=== PATIENT | female | born 1995 | race Caucasian/White ===

== ENCOUNTER 2021-09-08 17:26 | Inpatient (IN) ==
[2021-09-08] MEDS ORDERED: 0.9 % SODIUM CHLORIDE 1,000 ML IV ONE (18:49)
[2021-09-08] MEDS ORDERED: KETOROLAC 30 MG/ML VIAL IV ONE (18:53)
[2021-09-08] MEDS ORDERED: morphine 2 MG/ML VIAL IV ONE (18:53)
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
[2021-09-08 19:46] LABS: Appearance,Urine CLOUDY (Clear); Bacteria,Urine MANY /hpf (0); Bilirubin,Urine Negative (Negative); Color,Urine YELLOW; Culture Indicated,Urine No; Glucose,Urine (UA) Negative (Negative); Ketones,Urine Negative (Negative); Leukocyte Esterase,Urine 500 /uL (Negative); Mucus,Urine MOD /hpf; Nitrate,Urine Negative (Negative); Protein,Urine Negative (Negative); Specific Gravity,Urine 1.011 (1.000-1.035); Urine RBC 7 /hpf (0-3); Urine Squamous Epithelial Cell 21 /hpf (0-4); Urine WBC > 182 /hpf (0-4); Urobilinogen,Urine Negative
[2021-09-08 19:52] LABS: POC Blood Urea Nitrogen 8 mg/dL (6-20); POC CO2 22 mmol/L (22-30); POC Calcium, Ionized 1.24 mmEq/L (1.16-1.32); POC Chloride 104 mEq/L (96-108); POC Creatinine 0.5 mg/dL (0.6-1.2); POC Glucose, Random 110 mg/dL (70-105); POC Hematocrit 34 % (36-48); POC Potassium 3.9 mEql/L (3.3-5.1); POC Sodium 138 mEq/L (133-145)
[2021-09-08] MEDS ORDERED: cefTRIAXone 1 GM VIAL IV ONE (20:03)
[2021-09-08 20:20] LABS: Hemoglobin 11.8 g/dL (11.2-15.7); Mean Cell Volume 85.8 fL (80.0-100.0); Mean Corpuscular HGB Conc 33.7 g/dL (31.0-36.0); Mean Platelet Volume 9.1 fL (7.4-10.4); Platelet Count 381 K/mcL (140-440); RBC 4.08 M/mcL (3.59-5.38); Red Cell Distribution Width 12.6 % (11.5-14.5); WBC 13.2 K/mcL (4.5-11.0)
[2021-09-08 21:27] LABS: Eosinophils % (Manual) 1 % (0-7); Lymphocytes % 30 % (15-49); Monocytes % (Manual) 2 % (1-12); Platelet Estimate NORMAL (Normal); RBC Morphology NORMAL (Normal); Segmented Neutrophils % 67 % (38-78)
[2021-09-08] MEDS ORDERED: DOXYCYCLINE HYCLATE 100 MG TABLET.ORL PO ONE (22:19)
[2021-09-08] MEDS ORDERED: metroNIDAZOLE 500 MG TABLET PO ONE (22:19)
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
[2021-09-08] MEDS ORDERED: cefTRIAXone 1 GM in DEXTROSE 5% IN WATER 50 ML IV SCH (23:45)
[2021-09-08] MEDS ORDERED: KETOROLAC 10 MG TABLET PO PRN (23:59)
[2021-09-08] MEDS ORDERED: morphine 4 MG/ML VIAL IV PRN (23:59)
--- NOTE | 2021-09-09 00:12 | Emergency Department Note ---
HPI General Chief complaint: Abdominal Pain Stated complaint: nausea/vomiting, left lower abd pain Time Seen by Provider: 09/08/21 18:16 Source: patient Mode of arrival: ambulatory Limitations: no limitations History of Present Illness HPI Narrative: Narrative: Related Data Previous Rx's Medication Instructions Recorded metoclopramide HCl 5 mg tablet 5 mg PO QACHS #20 tab 09/06/20 baclofen 10 mg tablet 10 mg PO QID #120 tab 10/29/20 duloxetine 30 mg capsule,delayed 30 mg PO QDAY #30 cap 10/29/20 release duloxetine 60 mg capsule,delayed 60 mg PO QAM #30 cap 10/29/20 release lithium carbonate 450 mg See Rx Instructions .ROUTE 10/29/20 tablet,extended release .COMPLEX #90 tab mirtazapine 15 mg tablet See Rx Instructions .ROUTE 10/29/20 .COMPLEX #30 tab naltrexone 50 mg tablet See Rx Instructions .ROUTE 10/29/20 .COMPLEX #30 unknown measurement unit code: tablet quetiapine 100 mg tablet See Rx Instructions .ROUTE 10/29/20 .COMPLEX #45 unknown measurement unit code: tablet quetiapine 25 mg tablet 25 mg PO QDAY #30 tab 10/29/20 Allergies Allergy/AdvReac Type Severity Reaction Status Date / Time shellfish derived Allergy Severe THROAT Verified 09/08/21 17:27 SWELLING Sulfa (Sulfonamide Allergy Intermediate Unknown Verified 09/08/21 17:27 Antibiotics) Review of Systems ROS ROS Narrative: Narrative: [facility] Narrative Patient History Narrative: Narrative: Medical/Surgical/Family History All Active Problems (Updated 09/09/21 @ 00:12 by Jd Shelton DO) Tubo-ovarian abscess (Acute) Leukocytosis (Acute) Tubo-ovarian abscess (Acute) Acalculous cholecystitis (Acute) On middle or intermediate school principal drug therapy (Acute) Bipolar 1 disorder (Acute) Stimulant use disorder (Acute) Alcohol use disorder, mild, in sustained remission, abuse (Acute) Opioid use disorder, moderate, dependence (Acute) Cannabis use disorder, moderate, dependence (Acute) Acid reflux (Chronic) Numbness (Chronic) Chlamydia (Chronic) Migraine (Chronic) Joint pain (Chronic) ADHD (Chronic ~2004) Insomnia (Chronic) Bipolar 1 disorder (Acute ~2004) Depression (Chronic ~2004) ADD (attention deficit disorder) (Chronic) Heroin use (Chronic) Substance abuse (Chronic) Anxiety (Chronic ~2005) Bipolar disorder (Chronic) Abscess of skin or subcutaneous tissue (Chronic) Laceration (Chronic) Encounter for removal of sutures (Chronic) Medical History (Updated 09/09/21 @ 00:12 by Jd Shelton DO) Abscess of skin or subcutaneous tissue Acid reflux ADD (attention deficit disorder) ADHD (~2005) Anxiety (~2005) Bipolar 1 disorder (~2005) Bipolar disorder Chlamydia Depression (~2004) Heroin use Insomnia Joint pain Migraine Numbness Substance abuse Surgical History No pertinent past surgical history Family History Grandmother Stroke Paternal Seizure Paternal Cancer Maternal Diabetes Paternal Family/Other Seizure Aunt Migraine Aunt Mother Lung cancer Arthritis Father Anxiety Alcoholism Social History Smoking Status: Former smoker Alcohol Intake Frequency: does not drink Substance Use: former substance user, marijuana and heroin Exam Narrative Narrative: Narrative: General Limitations: no limitations Course Vital Signs Vital signs: Vital Signs Blood Pressure 118/75 09/08/21 18:25 Pulse Rate 89 09/08/21 22:33 Blood Pressure 119/73 09/08/21 22:31 Pulse Oximetry (%) 100 09/08/21 22:33 MDM MDM Narrative Medical decision making narrative: Narrative: Patient was seen in conjunction with the ORI, please see their chart for further details. Patient was signed out to me after the ORI's shift ended, with the remaining test being on ultrasound of the pelvis. In brief, the patient presented with worsening symptoms of lower abdominal/left lower quadrant abdominal pain, STIs symptoms of vaginal discharge, and body aches/chills. Vital signs here were stable, though she does have an elevated blood count and a tender abdomen. Ultrasound revealed a tubo-ovarian abscess, so MATTRESS SPECIALIST was consulted. Dr. Davis came to see the patient at bedside, examine her, and recommended admission to the hospital for IV antibiotics and possible interventional radiology drainage. She discussed the case directly with the hospitalist, who agreed with the plan of admission. I discussed case the hospitalist as well, who agrees to the plan of admission. Patient is comfortable and understands the process of what is happening. She has no further concerns or questions at this time. Lab Data Result diagrams: 09/08/21 19:45 Labs: Lab Results 09/08/21 09/08/21 09/08/21 Range/Units 17:42 19:44 19:45 WBC 13.2 H (4.5-11.0) K/mcL RBC 4.08 (3.59-5.38) M/mcL Hgb 11.8 (11.2-15.7) g/dL Hct 35.0 (34.1-44.9) % POC Hct 34 L (36-48) % MCV 85.8 (80.0-100.0) fL MCH 28.9 (26.0-34.0) pg MCHC 33.7 (31.0-36.0) g/dL RDW 12.6 (11.5-14.5) % Plt Count 381 (140-440) K/mcL MPV 9.1 (7.4-10.4) fL Seg Neutrophils % 67 (38-78) % Lymphocytes % 30 (15-49) % Monocytes % (Manual) 2 (1-12) % Eosinophils % (Manual) 1 (0-7) % Platelet Estimate Normal (Normal) RBC Morphology Normal (Normal) POC Sodium 138 (133-145) mEq/L POC Potassium 3.9 (3.3-5.1) mEql/L POC Chloride 104 (96-108) mEq/L POC Total CO2 22 (22-30) mmol/L POC BUN 8 (6-20) mg/dL POC Creatinine 0.5 L (0.6-1.2) mg/dL POC Glucose 110 H (70-105) mg/dL POC WB Ioniz Calcium 1.24 (1.16-1.32) mmEq/L Urine Color Yellow Urine Appearance Cloudy A (Clear) Urine pH 7.0 (5.0-9.0) Ur Specific [place] 1.011 (1.000-1.035) Urine Protein Negative (Negative) mg/dL Urine Glucose (UA) Negative (Negative) mg/dL Urine Ketones Negative (Negative) mg/dL Urine Occult Blood 0.20 (Negative) mg/dL Urine Nitrate Negative (Negative) Urine Bilirubin Negative (Negative) mg/dL Urine Urobilinogen Negative mg/dL Ur Leukocyte Esterase 500 A (Negative) /uL Urine RBC 7 H (0-3) /hpf Urine WBC > 182 H (0-4) /hpf Ur Squamous Epith Cells 21 H (0-4) /hpf Urine Bacteria Many A (0) /hpf Urine Mucus Mod A (None) /hpf Ur Culture Indicated? No HIV 1&2 Ag/Ab, 4th Gen (Non-Reactive) 09/08/21 Range/Units 19:45 WBC (4.5-11.0) K/mcL RBC (3.59-5.38) M/mcL Hgb (11.2-15.7) g/dL Hct (34.1-44.9) % POC Hct (36-48) % MCV (80.0-100.0) fL MCH (26.0-34.0) pg MCHC (31.0-36.0) g/dL RDW (11.5-14.5) % Plt Count (140-440) K/mcL MPV (7.4-10.4) fL Seg Neutrophils % (38-78) % Lymphocytes % (15-49) % Monocytes % (Manual) (1-12) % Eosinophils % (Manual) (0-7) % Platelet Estimate (Normal) RBC Morphology (Normal) POC Sodium (133-145) mEq/L POC Potassium (3.3-5.1) mEql/L POC Chloride (96-108) mEq/L POC Total CO2 (22-30) mmol/L POC BUN (6-20) mg/dL POC Creatinine (0.6-1.2) mg/dL POC Glucose (70-105) mg/dL POC WB Ioniz Calcium (1.16-1.32) mmEq/L Urine Color Urine Appearance (Clear) Urine pH (5.0-9.0) Ur Specific [place] (1.000-1.035) Urine Protein (Negative) mg/dL Urine Glucose (UA) (Negative) mg/dL Urine Ketones (Negative) mg/dL Urine Occult Blood (Negative) mg/dL Urine Nitrate (Negative) Urine Bilirubin (Negative) mg/dL Urine Urobilinogen mg/dL Ur Leukocyte Esterase (Negative) /uL Urine RBC (0-3) /hpf Urine WBC (0-4) /hpf Ur Squamous Epith Cells (0-4) /hpf Urine Bacteria (0) /hpf Urine Mucus (None) /hpf Ur Culture Indicated? HIV 1&2 Ag/Ab, 4th Gen Non-reactive (Non-Reactive) Discharge Plan Patient/Caregiver Discharge Instructions Pt seen by WIRED SWEATBAND CUTTER/PA only: No Clinical Impression: Tubo-ovarian abscess Patient Disposition: Xfer As Inpt ([facility]) Condition: Fair Follow up with: No,PCP [Primary Care Provider] - Prescriptions: No Action baclofen 10 mg tablet 10 mg PO QID Qty: 120 RF: 0 duloxetine 60 mg capsule,delayed release(DR/EC) 60 mg PO QAM Qty: 30 RF: 0 duloxetine 30 mg capsule,delayed release(DR/EC) 30 mg PO QDAY Qty: 30 RF: 0 lithium carbonate 450 mg tablet extended release See Rx Instructions .ROUTE .COMPLEX Qty: 90 RF: 0 mirtazapine 15 mg tablet See Rx Instructions .ROUTE .COMPLEX Qty: 30 RF: 0 naltrexone 50 mg tablet See Rx Instructions .ROUTE .COMPLEX Qty: 30 RF: 0 quetiapine [Seroquel] 25 mg tablet 25 mg PO QDAY Qty: 30 RF: 0 quetiapine 100 mg tablet See Rx Instructions .ROUTE .COMPLEX Qty: 45 RF: 0 metoclopramide HCl [Reglan] 5 mg tablet 5 mg PO QACHS Qty: 20 RF: 1
[2021-09-09] MEDS: ONDANSETRON 4 MG/2 ML VIAL IV PRN ×2 (02:20→06:49)
[2021-09-09] MEDS: cefOXitin 2 GM VIAL IV SCH ×2 (02:21→06:39)
[2021-09-09] MEDS ORDERED: 0.9 % SODIUM CHLORIDE 10 ML SYRINGE IV SCH ×2 (06:00→14:00)
--- NOTE | 2021-09-09 08:02 | Ultrasound Report ---
History: Left lower quadrant pelvic pain for four days, IUD for two years FINDINGS: The pelvis is imaged transabdominally and endovaginally. The uterus is anteverted and measures 4.6 x 6.0 x 8.0 cm. There is a linear IUD within the endometrial canal. This appears well-positioned. The myometrium is normal in thickness and slightly heterogeneous. There is no evidence of a uterine mass or fluid in the endometrial canal. Endometrium is 5 mm in thickness. The right ovary is enlarged and measures 3.3 x 5.0 x 5.3 cm. Within it there is a partially cystic and partially solid mass which measures 2.8 x 3.5 x 3.7 cm. Some of the solid components have a lobulated contour, are echogenic and hypervascular. There are also small follicles along the periphery of the ovary. Moderate amount free fluid is present in the left adnexa with relatively little free fluid around the right ovary. Left ovary is normal and measures 1.2 x 3.8 x 3.4 cm. It contains small follicles and has normal blood flow. IMPRESSION: Complex partially cystic and partially solid mass in the right ovary. With an IUD, an ectopic would be considered unlikely. This could be an infection such as a tubo-ovarian abscess. Neoplasm is also in the differential but less likely in a 26-year-old Well-positioned IUD Interpreted and Authenticated by: Antonio Culver 09/09/21
[2021-09-09] MEDS ORDERED: LITHIUM CARBONATE 450 MG TAB.SR.12H PO SCH (08:30)
[2021-09-09] MEDS ORDERED: cefOXitin 2 GM VIAL IV SCH ×2 (08:30→21:00)
[2021-09-09] MEDS ORDERED: ONDANSETRON 4 MG/2 ML VIAL IV PRN (08:41)
[2021-09-09] MEDS ORDERED: ACETAMINOPHEN 325 MG TABLET PO PRN (08:41)
[2021-09-09] MEDS ORDERED: 0.9 % SODIUM CHLORIDE 1,000 ML IV SCH (08:45)
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
[2021-09-09] MEDS ORDERED: QUEtiapine 25 MG TABLET PO SCH (09:00)
[2021-09-09] MEDS ORDERED: NALTREXONE HCL 50 MG TABLET PO SCH (09:00)
[2021-09-09] MEDS ORDERED: DULoxetine 30 MG CAPSULE PO SCH (09:00)
[2021-09-09] MEDS ORDERED: DOCUSATE SODIUM 100 MG CAPSULE PO SCH (09:00)
[2021-09-09] MEDS ORDERED: DOXYCYCLINE HYCLATE 100 MG TABLET.ORL PO SCH ×3 (09:00)
[2021-09-09] MEDS: BACLOFEN 10 MG TABLET PO SCH ×2 (09:51→12:59)
[2021-09-09] MEDS: oxyCODONE HCL 5 MG TABLET PO PRN ×2 (09:51→13:48)
--- NOTE | 2021-09-09 10:24 | Event Note ---
Event Note Event Note: Further Director Human Services Recommendations: Recommend percutaneous drainage if available. Continue IV antibiotics until clinically improved x24 hours. Once clinically improved recommend discharge home on doxycycline 100mg PO BID x 14 days and Flagyl 500mg PO BID x 14 days.
[2021-09-09 10:45] LABS: Basophils # (Auto) 0.06 K/mcL (0.00-0.30); Basophils % (Auto) 0.5 % (0.0-2.0); Eosinophils % (Auto) 1.8 % (0.0-7.0); Hematocrit 39.6 % (34.1-44.9); Hemoglobin 12.9 g/dL (11.2-15.7); Lymphocytes # (Auto) 2.29 K/mcL (1.50-4.80); Lymphocytes % (Auto) 20.7 % (15.5-49.0); Mean Corpuscular HGB Conc 32.6 g/dL (31.0-36.0); Mean Platelet Volume 9.2 fL (7.4-10.4); Monocytes # (Auto) 0.75 K/mcL (0.10-0.90); Monocytes % (Auto) 6.8 % (1.0-12.0); Neutrophils % (Auto) 70.2 % (38.0-78.0); Platelet Count 367 K/mcL (140-440); RBC 4.55 M/mcL (3.59-5.38); WBC 11.1 K/mcL (4.5-11.0)
[2021-09-09 11:13] LABS: ALT/SGPT 14 U/L (<40); AST/SGOT 14 U/L (<32); Albumin/Globulin Ratio 1.4 (1.0-2.3); Alkaline Phosphatase 94 U/L (39-117); Bilirubin,Total 0.7 mg/dL (0.1-1.0); Blood Urea Nitrogen 7 mg/dL (6-20); Calcium 9.6 mg/dL (8.6-10.4); Carbon Dioxide 22 mmol/L (22-30); Chloride 106 mmol/L (96-108); Globulin 2.8 gm/dL (2.2-3.7); Glomerular Filtration Rate 125; Glucose 82 mg/dL (70-105)
--- NOTE | 2021-09-09 15:50 | Discharge Summary ---
Discharge Provider Provider Patient information: Note initiated : 09/09/21 at 3:48 pm Service Date, if different from initiated Date: [] Patient: Gabriella Maurice 26 y/o F admitted on 09/09/21 for nausea/vomiting, left lower abd pain. Chief Complaint: [tubo-ovarian abscess] Date of admission: 09/09/21 01:36 Discharge date: 09/09/21 Primary care physician: PCP No Consults: 09/09/21 08:18 Consult to Physician [CONS] Routine Comment: Consulting Provider: Royal Kasper Reason For Exam: Physician to Consult Discharge Meds Discharge Medications Home Medications metoclopramide HCl 5 mg tablet 5 mg PO QACHS #20 tab 09/06/20 [Rx Confirmed 09/09/21 Last Taken Unknown] baclofen 10 mg tablet 10 mg PO QID #120 tab 10/29/20 [Rx Confirmed 09/09/21 Last Taken Unknown] duloxetine 30 mg capsule,delayed release 30 mg PO QDAY #30 cap 10/29/20 [Rx Confirmed 09/09/21 Last Taken Unknown] duloxetine 60 mg capsule,delayed release 60 mg PO QAM #30 cap 10/29/20 [Rx Confirmed 09/09/21 Last Taken Unknown] lithium carbonate 450 mg tablet,extended release See Rx Instructions .ROUTE .COMPLEX #90 tab 10/29/20 [Rx Confirmed 09/09/21 Last Taken Unknown] mirtazapine 15 mg tablet See Rx Instructions .ROUTE .COMPLEX #30 tab 10/29/20 [Rx Confirmed 09/09/21 Last Taken Unknown] naltrexone 50 mg tablet See Rx Instructions .ROUTE .COMPLEX #30 unknown measurement unit code: tablet 10/29/20 [Rx Confirmed 09/09/21 Last Taken Unknown] quetiapine 100 mg tablet See Rx Instructions .ROUTE .COMPLEX #45 unknown measurement unit code: tablet 10/29/20 [Rx Confirmed 09/09/21 Last Taken Unknown] quetiapine 25 mg tablet 25 mg PO QDAY #30 tab 10/29/20 [Rx Confirmed 09/09/21 Last Taken Unknown] COURSE Hospital Course Hospital course: Antibiotics started on 09/08. Radiologist-assisted abscess drainage not available. Patient left AMA on 09/09. Discharge diagnosis: tuboovarian abscess Time Spent with Patient Time attestation: Total time spent providing and/or coordinating discharge services: Antibiotics started on 09/08. Radiologist-assisted abscess drainage not available. Patient left AMA on 09/09. EXAM Constitutional Vitals: Temp Pulse Resp BP Pulse Ox 36.7 C 72 16 109/64 97 09/09/21 15:43 09/09/21 15:43 09/09/21 15:43 09/09/21 15:43 09/09/21 15:43 General appearance: cooperative and no acute distress Head Head exam: Present atraumatic and normocephalic Eye Eye exam: Present EOMI and PERRL ENT ENT exam: Present mucous membranes moist, normal exam and normal external ear exam Neck Neck exam: Present normal inspection; Absent lymphadenopathy, tenderness and thyromegaly Respiratory Respiratory exam: Absent accessory muscle use, respiratory distress and wheezes Cardiovascular Cardiovascular exam: Present normal rate and rhythm; Absent JVD GI/Abdominal GI/Abdominal exam: Present normal bowel sounds and soft; Absent organomegaly and tenderness Extremities Exam Extremities exam: Present full ROM, normal capillary refill and normal inspection; Absent tenderness Neurological Exam Neurological exam: Present alert, CN II-XII intact and oriented X3; Absent motor sensory deficit Psychiatric Psychiatric exam: Present normal affect and normal mood; Absent anxious and depressed Skin Skin exam: Present dry and intact Discharge Data Data Completed and Pending Labs on day of discharge: Labs from last 24 hours 09/09/21 09/09/21 09/09/21 09:45 09:45 09:45 WBC 11.1 H RBC 4.55 Hgb 12.9 Hct 39.6 POC Hct MCV 87.0 MCH 28.4 MCHC 32.6 RDW 13.0 Plt Count 367 MPV 9.2 Neut % (Auto) 70.2 Lymph % (Auto) 20.7 [place] % (Auto) 6.8 Eos % (Auto) 1.8 Baso % (Auto) 0.5 Lymph # (Auto) 2.29 [place] # (Auto) 0.75 Eos # (Auto) 0.20 Baso # (Auto) 0.06 Seg Neutrophils % Lymphocytes % Monocytes % (Manual) Eosinophils % (Manual) Absolute Neutrophils 7.76 Platelet Estimate RBC Morphology POC Sodium Sodium 137 POC Potassium Potassium 3.9 POC Chloride Chloride 106 Carbon Dioxide 22 POC Total CO2 Anion Gap 9.0 POC BUN BUN 7 Creatinine 0.6 POC Creatinine GFR Calculation 125 Glucose 82 POC Glucose Calcium 9.6 POC WB Ioniz Calcium Total Bilirubin 0.7 AST 14 ALT 14 Alkaline Phosphatase 94 Total Protein 6.8 Albumin 4.0 Globulin 2.8 Albumin/Globulin Ratio 1.4 Procalcitonin 0.03 Urine Color Urine Appearance Urine pH Ur Specific [place] Urine Protein Urine Glucose (UA) Urine Ketones Urine Occult Blood Urine Nitrate Urine Bilirubin Urine Urobilinogen Ur Leukocyte Esterase Urine RBC Urine WBC Ur Squamous Epith Cells Urine Bacteria Urine Mucus Ur Culture Indicated? HIV 1&2 Ag/Ab, 4th Gen 09/08/21 09/08/21 09/08/21 19:45 19:45 19:44 WBC 13.2 H RBC 4.08 Hgb 11.8 Hct 35.0 POC Hct 34 L MCV 85.8 MCH 28.9 MCHC 33.7 RDW 12.6 Plt Count 381 MPV 9.1 Neut % (Auto) Lymph % (Auto) [place] % (Auto) Eos % (Auto) Baso % (Auto) Lymph # (Auto) [place] # (Auto) Eos # (Auto) Baso # (Auto) Seg Neutrophils % 67 Lymphocytes % 30 Monocytes % (Manual) 2 Eosinophils % (Manual) 1 Absolute Neutrophils Platelet Estimate Normal RBC Morphology Normal POC Sodium 138 Sodium POC Potassium 3.9 Potassium POC Chloride 104 Chloride Carbon Dioxide POC Total CO2 22 Anion Gap POC BUN 8 BUN Creatinine POC Creatinine 0.5 L GFR Calculation Glucose POC Glucose 110 H Calcium POC WB Ioniz Calcium 1.24 Total Bilirubin AST ALT Alkaline Phosphatase Total Protein Albumin Globulin Albumin/Globulin Ratio Procalcitonin Urine Color Urine Appearance Urine pH Ur Specific [place] Urine Protein Urine Glucose (UA) Urine Ketones Urine Occult Blood Urine Nitrate Urine Bilirubin Urine Urobilinogen Ur Leukocyte Esterase Urine RBC Urine WBC Ur Squamous Epith Cells Urine Bacteria Urine Mucus Ur Culture Indicated? HIV 1&2 Ag/Ab, 4th Gen Non-reactive 09/08/21 17:42 WBC RBC Hgb Hct POC Hct MCV MCH MCHC RDW Plt Count MPV Neut % (Auto) Lymph % (Auto) [place] % (Auto) Eos % (Auto) Baso % (Auto) Lymph # (Auto) [place] # (Auto) Eos # (Auto) Baso # (Auto) Seg Neutrophils % Lymphocytes % Monocytes % (Manual) Eosinophils % (Manual) Absolute Neutrophils Platelet Estimate RBC Morphology POC Sodium Sodium POC Potassium Potassium POC Chloride Chloride Carbon Dioxide POC Total CO2 Anion Gap POC BUN BUN Creatinine POC Creatinine GFR Calculation Glucose POC Glucose Calcium POC WB Ioniz Calcium Total Bilirubin AST ALT Alkaline Phosphatase Total Protein Albumin Globulin Albumin/Globulin Ratio Procalcitonin Urine Color Yellow Urine Appearance Cloudy A Urine pH 7.0 Ur Specific [place] 1.011 Urine Protein Negative Urine Glucose (UA) Negative Urine Ketones Negative Urine Occult Blood 0.20 Urine Nitrate Negative Urine Bilirubin Negative Urine Urobilinogen Negative Ur Leukocyte Esterase 500 A Urine RBC 7 H Urine WBC > 182 H Ur Squamous Epith Cells 21 H Urine Bacteria Many A Urine Mucus Mod A Ur Culture Indicated? No HIV 1&2 Ag/Ab, 4th Gen Discharge Plan Patient/Caregiver Discharge Instructions Prescriptions: No Action baclofen 10 mg tablet 10 mg PO QID Qty: 120 RF: 0 duloxetine 60 mg capsule,delayed release(DR/EC) 60 mg PO QAM Qty: 30 RF: 0 duloxetine 30 mg capsule,delayed release(DR/EC) 30 mg PO QDAY Qty: 30 RF: 0 lithium carbonate 450 mg tablet extended release See Rx Instructions .ROUTE .COMPLEX Qty: 90 RF: 0 mirtazapine 15 mg tablet See Rx Instructions .ROUTE .COMPLEX Qty: 30 RF: 0 naltrexone 50 mg tablet See Rx Instructions .ROUTE .COMPLEX Qty: 30 RF: 0 quetiapine [Seroquel] 25 mg tablet 25 mg PO QDAY Qty: 30 RF: 0 quetiapine 100 mg tablet See Rx Instructions .ROUTE .COMPLEX Qty: 45 RF: 0 metoclopramide HCl [Reglan] 5 mg tablet 5 mg PO QACHS Qty: 20 RF: 1 Follow Up Plan Follow up with: No,PCP [Primary Care Provider] - Patient Disposition: Left Against Medical Advice Prognosis: Fair Rehab Potential: Serious I certify that the patient requires SNF services: No Overall status at discharge: patient is not back to baseline Discharge Orders: Discharge Order (Routine); Ordered 09/09/21 Ordered By: Royal JARAMILLO VTE Deep Vein Thrombosis/Pulmonary Embolism Present on Admission: No
[2021-09-09] MEDS ORDERED: SENNOSIDES 1 TABLET PO SCH (21:00)
[2021-09-09] MEDS ORDERED: MIRTAZAPINE 15 MG TABLET PO SCH (21:00)
[2021-09-09] MEDS ORDERED: QUEtiapine 100 MG TABLET PO SCH (21:00)
== END 2021-09-09 15:40 | disposition left against medical advice (07) | DRG 759 ==
LOC: ED 17:26 → MEDSUR 09-09 01:36
PROVIDERS: ADMIT Internal Medicine; ATTEND Internal Medicine